=== PATIENT | male | born 2000 | race Caucasian/White ===

== ENCOUNTER 2019-09-29 17:19 | Emergency (ER) | payer OTHER, BC, SELFPAY ==
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
[2019-09-29 17:26] VITALS: BP 117/78; PULSE 79; RESP 16; TEMP 36.8; O2SAT 100
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
== END 2019-09-29 18:33 | disposition home or self-care (01) ==
PROVIDERS: Emergency Provider Emergency Medicine
DX: S62.397A Other fracture of fifth metacarpal bone, left hand, initial encounter for closed fracture (principal); V49.40XA Driver injured in collision with unspecified motor vehicles in traffic accident, initial encounter
CPT/HCPCS: 29125; 73110; 73130; 99284; A4565